=== PATIENT | male | born 1980 | race Caucasian/White ===

== ENCOUNTER 2017-08-21 21:04 | Emergency (ER) | payer OTHER ==
[~2017-08-21] VITALS: Ht 172.7 cm; Wt 71.3 kg
[2017-08-21 21:09] VITALS: BP 134/90; PULSE 91; TEMP 36.8; O2SAT 99; Ht 172.7 cm; Wt 71.3 kg
[2017-08-21] MEDS ORDERED: LIDOCAINE/EPINEPH/TETRACAINE 1 EA SYR EXT STA (21:33)
[2017-08-21] MEDS ORDERED: DIPHTHERIA/TETANUS/PERTUSSIS 0.5 ML SYR/VIAL IM. ONE (21:45)
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
== END 2017-08-21 23:30 | disposition home or self-care (01) ==
LOC: C.EDD 21:05 → C.EDC 23:30
DX: S16.1XXA Strain of muscle, fascia and tendon at neck level, initial encounter (principal); S01.81XA Laceration without foreign body of other part of head, initial encounter; G91.9 Hydrocephalus, unspecified; V89.2XXA Person injured in unspecified motor-vehicle accident, traffic, initial encounter; F17.210 Nicotine dependence, cigarettes, uncomplicated; Z23 Encounter for immunization